=== PATIENT | male | born 1970 | race African-American/Black ===

== ENCOUNTER 2024-07-11 10:01 | Inpatient (IN) | payer OTHER ==
[~2024-07-11] VITALS: Ht 327.7 cm; Wt 88.5 kg
[2024-07-11 11:04] LABS: CLARITY URINE CLEAR (CLEAR); COLOR URINE YELLOW (YELLOW); GLUCOSE URINE 3+ (NEGATIVE); KETONES URINE NEGATIVE (NEGATIVE); LEUKOCYTE ESTERASE URINE NEGATIVE (NEGATIVE); NITRITE URINE NEGATIVE (NEGATIVE); OCCULT BLOOD URINE TRACE (NEGATIVE); PROTEIN URINE 2+ (NEGATIVE); SPECIFIC GRAVITY URINE 1.016 (1.005-1.030); UROBILINOGEN URINE 0.2 E.U./dL (0.2-1.0)
[2024-07-11 11:11] LABS: CHLORIDE 106 mEq/L (98-107); INR 0.9; PROTHROMBIN TIME 10.5 sec (9.6-11.0); SODIUM 142 mEq/L (136-145)
[2024-07-11 11:12] LABS: CALCIUM 9.7 mg/dL (8.7-10.4); CARBON DIOXIDE 28 mEq/L (21-32)
[2024-07-11] MEDS: IOHEXOL-350 100 ML BOTTLE ONE (11:12)
[2024-07-11 11:17] LABS: BASOPHILS % 1.1 % (0.0-2.0); CREATININE 1.3 mg/dL (0.6-1.3); DIFFERENTIAL COMMENT 0; EOSINOPHILS % 1.3 % (0.0-5.0); GLUCOSE 306 mg/dL (70-105); HEMATOCRIT. 45.5 % (42.0-52.0); HEMOGLOBIN. 15.6 g/dL (14.0-18.0); LYMPHOCYTES % 45.7 % (20.0-50.0); MEAN CORPUSCULAR HEMOGLOBIN 30.3 pg (28.0-32.0); MEAN CORPUSCULAR HGB CONC 34.2 g/dL (31.0-37.0); MEAN CORPUSCULAR VOLUME 88.7 fL (80.0-94.0); MEAN PLATELET VOLUME 10.5 fl (7.4-10.4); MONOCYTES % 8.2 % (2.0-8.0); NEUTROPHILS % 43.7 % (40.0-76.0); PLATELET 204 x1000/uL (130-400); POTASSIUM 2.7 mEq/L (3.5-5.1); RED BLOOD CELL COUNT 5.13 mill/uL (4.7-6.1); RED CELL DISTRIBUTION WIDTH 13.4 % (11.6-14.6); UREA NITROGEN BLOOD 9 mg/dL (9-23)
[2024-07-11 11:19] LABS: ETHANOL BLOOD < 10 mg/dL (<10); TROPONIN I HIGH SENSITIVITY 42 ng/L (3.0-53)
[2024-07-11 11:20] LABS: RBC URINE 0-2 /hpf (0-2); SQUAMOUS EPITHELIAL CELL URINE NONE SEEN /lpf (RARE/1+); WBC URINE 0-2 /hpf (0-2)
[2024-07-11 11:21] LABS: BACTERIA URINE NONE SEEN
[2024-07-11] MEDS: LABETALOL 5MG/ML 4ML INJ IV ONE (11:21)
[2024-07-11] MEDS: KCL 20MEQ/100ML PREMIX 100 ML IV SCH (11:25)
[2024-07-11 11:28] LABS: *AMPHETAMINES SCREEN URINE NEGATIVE (NEGATIVE); *BARBITURATES SCREEN URINE NEGATIVE (NEGATIVE); *BENZODIAZEPINES SCREEN URINE NEGATIVE (NEGATIVE); *COCAINE SCREEN URINE NEGATIVE (NEGATIVE); METHADONE URINE SCREEN NEGATIVE (NEGATIVE); OPIATES URINE SCREEN NEGATIVE (NEGATIVE)
[2024-07-11 11:29] LABS: CANNABINOID URINE SCREEN NEGATIVE (NEGATIVE); ECSTASY MDMA SCREEN URINE NEGATIVE (NEGATIVE); PHENCYCLIDINE URINE SCREEN NEGATIVE (NEGATIVE)
[2024-07-11] MEDS: NICARDIPINE 40MG/200ML PREMIX 200 ML IV ONE (12:24)
[2024-07-11] MEDS: NICARDIPINE 50 MG in SODIUM CHLORIDE 0.9% 230 ML IV STA (12:35)
[2024-07-11] MEDS ORDERED: NICARDIPINE 100 MG in SODIUM CHLORIDE 0.9% 60 ML IV PRN (14:00)
[2024-07-11] MEDS: NICARDIPINE 100 MG in SODIUM CHLORIDE 0.9% 60 ML IV PRN (17:14)
[2024-07-11] MEDS: DEXT 5%/LACTATED RINGERS 1,000 ML IV SCH (18:16)
[2024-07-11] MEDS: DEXAMETHASONE 4MG/ML 1ML VIAL IV SCH (18:16)
[2024-07-11] MEDS: LEVETIRACETAM 500MG PREMIX 100 ML IV SCH (22:15)
[2024-07-12] VITALS (59 sets, daily range): BP systolic 87–154; BP diastolic 60–98; PULSE 71–119; RESP 10–29; TEMP 36.2–37; O2SAT 77–99
[2024-07-12] MEDS ORDERED: DOCUSATE SODIUM 100MG CAPSULE PO PRN (00:45)
[2024-07-12] MEDS ORDERED: HYDROCODONE/ACETAMINOPHEN 5/325MG TABLET PO PRN (00:45)
[2024-07-12] MEDS ORDERED: ONDANSETRON HCL 4MG/2ML INJ IV PRN (00:45)
[2024-07-12] MEDS ORDERED: MAGNESIUM/ALUMINUM HYDROXIDE/SIMETHICONE 30ML UDC PO PRN (00:45)
[2024-07-12] MEDS ORDERED: ACETAMINOPHEN 325MG TABLET PO PRN ×2 (00:45)
[2024-07-12] MEDS ORDERED: CLONIDINE 0.1MG TABLET PO PRN (00:45)
[2024-07-12] MEDS ORDERED: IPRATROPIUM/ALBUTEROL 0.5-3(2.5)MG/3ML NEB HHN PRN (00:45)
[2024-07-12] MEDS ORDERED: GUAIFENESIN 200MG/10ML SUGAR FREE UDC PO PRN (00:45)
[2024-07-12 03:55] LABS: HEPATITIS B SURFACE ANTIGEN NEGATIVE (Negative)
[2024-07-12 04:16] LABS: HEPATITIS C AB NON REACTIVE (Neg) (Negative)
[2024-07-12 06:37] LABS: CREATINE KINASE MB FRACTION 4.3 ng/mL (0.5-3.6)
[2024-07-12] MEDS: INSULIN LISPRO 100 UNITS/ML SUBCUT SCH (07:29)
[2024-07-12] MEDS ORDERED: DEXTROSE 50% WATER 50ML SYRINGE IV PRN (07:30)
[2024-07-12] MEDS ORDERED: NALOXONE HCL 0.4MG/ML VIAL IV PRN (07:30)
[2024-07-12] MEDS: BLOOD SUGAR DIAGNOSTIC STRIP TEST SCH (07:30)
[2024-07-12 09:21] LABS: HEMATOCRIT. 46.5 % (42.0-52.0); HEMOGLOBIN. 15.4 g/dL (14.0-18.0); MEAN CORPUSCULAR HEMOGLOBIN 30.4 pg (28.0-32.0); MEAN CORPUSCULAR HGB CONC 33.2 g/dL (31.0-37.0); MEAN CORPUSCULAR VOLUME 91.7 fL (80.0-94.0); MEAN PLATELET VOLUME 11.1 fl (7.4-10.4); PLATELET 209 x1000/uL (130-400); RED BLOOD CELL COUNT 5.07 mill/uL (4.7-6.1); RED CELL DISTRIBUTION WIDTH 13.4 % (11.6-14.6); WHITE BLOOD COUNT 7.6 x1000/uL (4.5-11.0)
[2024-07-12 09:22] LABS: CARBON DIOXIDE 19 mEq/L (21-32); CHLORIDE 105 mEq/L (98-107); POTASSIUM 3.6 mEq/L (3.5-5.1); SODIUM 140 mEq/L (136-145)
[2024-07-12 09:23] LABS: CALCIUM 9.7 mg/dL (8.7-10.4)
[2024-07-12 09:25] LABS: DIFFERENTIAL COMMENT 1
[2024-07-12 09:28] LABS: UREA NITROGEN BLOOD 16 mg/dL (9-23)
[2024-07-12 09:53] LABS: CREATININE 1.8 mg/dL (0.6-1.3); GLUCOSE 436 mg/dL (70-105)
[2024-07-12 10:14] LABS: GIANT PLATELETS 1+; PLATELET ESTIMATE NORMAL
[2024-07-12] MEDS: NIFEDIPINE XL 30MG TAB PO SCH (11:32)
[2024-07-12] MEDS: ISOSORBIDE MONONITRATE 60MG TABLET SR 24HR PO SCH (11:33)
[2024-07-12] MEDS: HYDRALAZINE HCL 25MG TABLET PO SCH (18:54)
[2024-07-12] MEDS: CARVEDILOL 6.25 MG TABLET PO SCH (18:54)
[2024-07-12 19:29] LABS: CREATINE KINASE MB FRACTION 3.7 ng/mL (0.5-3.6)
[2024-07-12] MEDS: NIFEDIPINE XL 60MG TAB PO SCH (20:25)
[2024-07-12] MEDS: ATORVASTATIN CALCIUM 40MG TABLET PO SCH (20:25)
[2024-07-12] MEDS: INSULIN GLARGINE 100 UNITS/ML SUBCUT SCH (22:23)
[2024-07-13] VITALS (57 sets, daily range): BP systolic 88–151; BP diastolic 42–98; PULSE 71–101; RESP 10–34; TEMP 36.4–36.8; O2SAT 94–100
[2024-07-13 05:55] LABS: HEMATOCRIT. 42.6 % (42.0-52.0); MEAN CORPUSCULAR HEMOGLOBIN 29.7 pg (28.0-32.0); MEAN CORPUSCULAR HGB CONC 32.9 g/dL (31.0-37.0); MEAN CORPUSCULAR VOLUME 90.1 fL (80.0-94.0); PLATELET 208 x1000/uL (130-400); RED BLOOD CELL COUNT 4.73 mill/uL (4.7-6.1); RED CELL DISTRIBUTION WIDTH 13.5 % (11.6-14.6)
[2024-07-13 06:05] LABS: POTASSIUM 3.2 mEq/L (3.5-5.1)
[2024-07-13 06:06] LABS: CALCIUM 10.6 mg/dL (8.7-10.4)
[2024-07-13 06:10] LABS: THYROID STIMULATING HORMONE 0.27 uIU/mL (0.55-4.78)
[2024-07-13 06:23] LABS: DIFFERENTIAL COMMENT 1
[2024-07-13 06:35] LABS: CREATININE 2.4 mg/dL (0.6-1.3)
[2024-07-13] MEDS: POTASSIUM CHLORIDE 20MEQ/PACKET PO NR (08:53)
[2024-07-13] MEDS: HYDRALAZINE HCL 50MG TABLET PO SCH (14:26)
[2024-07-13] MEDS ORDERED: COR6 PO (19:06)
[2024-07-13] MEDS ORDERED: LIP40 PO (19:06)
[2024-07-13] MEDS ORDERED: LANTUSUD SUBCUT (19:06)
[2024-07-13] MEDS ORDERED: HYDR50TA39 PO (19:06)
[2024-07-13] MEDS ORDERED: CLON0.1T PO (19:06)
[2024-07-13] MEDS ORDERED: TOPUD PO ×2 (19:06)
[2024-07-13] MEDS ORDERED: KEPP500 MT (19:06)
[2024-07-13] MEDS ORDERED: NIFE-32 PO (19:06)
[2024-07-13] MEDS ORDERED: ISOS60TA76 PO (19:06)
[2024-07-14] VITALS (7 sets, daily range): BP systolic 128–145; BP diastolic 71–85; PULSE 74–89; RESP 15–20; TEMP 36.3–36.7; O2SAT 95–99
[2024-07-14 11:07] LABS: CHLORIDE 108 mEq/L (98-107); POTASSIUM 3.3 mEq/L (3.5-5.1); SODIUM 143 mEq/L (136-145)
[2024-07-14 11:08] LABS: CALCIUM 9.5 mg/dL (8.7-10.4); CARBON DIOXIDE 24 mEq/L (21-32)
[2024-07-14 11:13] LABS: CREATINE KINASE 157 IU/L (46-171); UREA NITROGEN BLOOD 26 mg/dL (9-23)
[2024-07-14 11:32] LABS: GLUCOSE 186 mg/dL (70-105)
[2024-07-14 11:33] LABS: CREATININE 1.3 mg/dL (0.6-1.3)
[2024-07-14 16:40] LABS: PLATELET ESTIMATE NORMAL
== END 2024-07-14 22:09 | disposition short-term general hospital (02) | DRG 85 ==
LOC: ER 10:11 → MICUSO 13:17 → EDBEDREQ 13:22 → EDBEDREQTM 13:22 → EDBEDREQSVC 13:22 → 3WST 07-13 17:41
PROVIDERS: ADMIT Internal Medicine; ATTEND Internal Medicine
DX: S06.350A Traumatic hemorrhage of left cerebrum without loss of consciousness, initial encounter (principal); I21.A1 Myocardial infarction type 2; G81.91 Hemiplegia, unspecified affecting right dominant side; I16.1 Hypertensive emergency; N17.9 Acute kidney failure, unspecified; E11.65 Type 2 diabetes mellitus with hyperglycemia; E87.6 Hypokalemia; I12.9 Hypertensive chronic kidney disease with stage 1 through stage 4 chronic kidney disease, or unspecified chronic kidney disease; N18.9 Chronic kidney disease, unspecified; V89.2XXA Person injured in unspecified motor-vehicle accident, traffic, initial encounter; Y93.89 Activity, other specified; Y92.89 Other specified places as the place of occurrence of the external cause; Y99.8 Other external cause status
CPT/HCPCS: 36415; 70496; 70498; 71045; 80048; 80061; 80305; 80320; 81003; 82550; 82553; 82962; 83036; 83735; 84443; 84484; 85025; 86705; 87340; 93005; 93306; 93970; 97162; 97166; 97530; 99291; A4606; A4663; J1100; J1815; J1953; J3480; J3490; J7050; Q9967; G0480